=== PATIENT | female | born 1955 | race Caucasian/White ===

== ENCOUNTER → 2019-09-29 10:31 | Outpatient (BNVA) | payer OTHER, SELFPAY | PROVIDERS: Family Provider Nurse Practitioner Family; PCP Nurse Practitioner Family; Visit Provider Registered Nurse | DX: Z00.00 Encounter for general adult medical examination without abnormal findings (principal); E03.9 Hypothyroidism, unspecified; E78.5 Hyperlipidemia, unspecified; Z12.31 Encounter for screening mammogram for malignant neoplasm of breast; Z53.20 Procedure and treatment not carried out because of patient's decision for unspecified reasons | CPT/HCPCS: 80053; 80061; 84443; 85025 ==

== ENCOUNTER → 2019-10-11 08:52 | Outpatient (BNVA) | payer OTHER, SELFPAY | PROVIDERS: Family Provider Nurse Practitioner Family; PCP Nurse Practitioner Family; Visit Provider Registered Nurse | DX: Z00.00 Encounter for general adult medical examination without abnormal findings (principal) | CPT/HCPCS: 80053; 80061; 84443 ==

== ENCOUNTER 2019-12-30 08:36 | Outpatient (CLI) | payer OTHER, SELFPAY ==
--- NOTE | 2019-12-30 08:55 | MM_ITS ---
WS: [id number] SCREENING DIGITAL MAMMOGRAM WITH CAD HISTORY: SCREEN COMPARISON: 11/05/2018 and 10/16/2016 Bilateral CC and MLO views submitted. Computer aided detection analyzed. Breast composition: The breasts are heterogeneously dense, which may obscure small masses. No suspici ous masses, microcalcifications or architectural distortion. MM/[place] [id number] IMPRESSION: BI-RADS: 1-Negative FOLLOW UP: 1 Year Follow-up
== END 2019-12-30 08:37 | disposition home or self-care (01) ==
LOC: RADSHAW 08:42
PROVIDERS: PCP Registered Nurse; Visit Provider Registered Nurse
DX: Z01.419 Encounter for gynecological examination (general) (routine) without abnormal findings (principal); Z12.31 Encounter for screening mammogram for malignant neoplasm of breast
CPT/HCPCS: 77067; 82270

== ENCOUNTER → 2020-10-02 08:58 | Outpatient (BNVA) | payer OTHER, SELFPAY | PROVIDERS: PCP Registered Nurse; Visit Provider Registered Nurse | DX: Z12.31 Encounter for screening mammogram for malignant neoplasm of breast (principal); E03.9 Hypothyroidism, unspecified; E78.5 Hyperlipidemia, unspecified; F41.9 Anxiety disorder, unspecified; Z78.9 Other specified health status | CPT/HCPCS: 80053; 80061; 84443; 85025 ==

== ENCOUNTER 2021-01-01 09:58 | Outpatient (CLI) | payer OTHER, SELFPAY ==
--- NOTE | 2021-01-01 10:15 | MM_ITS ---
WS: [id number] Exam: [place] [id number] Date/Time of Exam: 01/01/2021 10:43 AM Reason For Exam: SCREENING VIEWS: MLO and CC views both breasts. Comparison made with prior exam of 10/16/2016, 10/17/2017, 11/05/2018 and 12/30/2019. Findings: There was no sign of mass, architectural distortion or suspicious calcification in either breast. Sc attered fibroglandular densities MM/[place] [id number] Impression: BI-RADS: 2-Benign FOLLOW-UP: 1 Year Follow-up This mammogram was also analyzed by the Computer Aided Detection System R2 Imag e Net Software Engineer.
== END 2021-01-01 09:59 | disposition home or self-care (01) ==
LOC: RADSHAW 10:01
PROVIDERS: PCP Registered Nurse; Visit Provider Obstetrics & Gynecology
DX: Z12.31 Encounter for screening mammogram for malignant neoplasm of breast (principal)
CPT/HCPCS: 77067

== ENCOUNTER → 2021-01-19 10:36 | Outpatient (BNVA) | payer OTHER, SELFPAY | PROVIDERS: PCP Registered Nurse; Visit Provider Obstetrics & Gynecology | DX: Z01.419 Encounter for gynecological examination (general) (routine) without abnormal findings (principal) | CPT/HCPCS: 82270 ==

== ENCOUNTER → 2021-10-11 09:00 | Outpatient (BNVA) | payer OTHER, SELFPAY | PROVIDERS: PCP Registered Nurse; Visit Provider Registered Nurse | DX: I10 Essential (primary) hypertension (principal); E03.9 Hypothyroidism, unspecified; E78.5 Hyperlipidemia, unspecified | CPT/HCPCS: 80053; 80061; 84443; 85025 ==

== ENCOUNTER 2021-11-28 09:24 | Day surgery (SDC) | payer OTHER, SELFPAY ==
[2021-11-27 06:25] VITALS: BMI 26.2
[2021-11-28 09:56] VITALS: BP 157/82; PULSE 86; RESP 16; TEMP 37; O2SAT 99
--- NOTE | 2021-11-28 10:00 | ECG_ITS ---
[facility] Test Date: 2021-11-28 Pat Name: Leslie Balnco Department: Room: Gender: Female Rivet Catcher: : 1955 Requested By: Jorge Tam Order Number: [id number] Luisa Dutton MD: Andrew Jimenez M.D. Measurements Intervals [place] Rate: 67 P: 60 AK: 139 QRS: 0 QRSD: 94 T: 67 QT: 352 QTc: 372 Interpretive Statements SINUS RHYTHM WITH OCCASIONAL SUPRAVENTRICULAR PREMATURE COMPLEXES POSSIBLE LEFT ATRIAL ENLARGEMENT [-0.1mV P-WAVE IN V1/V2] INCOMPLETE RIGHT BUNDLE BRANCH BLOCK [90+ ms QRS DURATION, TERMINAL R IN V1/V2, 40+ ms S IN I/aVL/V4/V5/V6] No previous ECG available for comparison Electronically Signed On 11-28-2021 22:15:09 CDT by Andrew Jimenez M.D. [id number]
[2021-11-28] MEDS: sodium chloride 0.9% 1,000 ML 30 ML IV (10:08)
--- NOTE | 2021-11-28 10:22 | P.ANESASSM_ITS ---
Pre-Anesthetic Assessment Height/Weight: Height 1.7 m Weight 75.75 kg Temp Pulse Resp BP Pulse Ox 98.6 F 86 16 157/82 99 11/28/21 09:56 11/28/21 09:56 11/28/21 09:56 11/28/21 09:56 11/28/21 09:56 Preop Diagnosis: diagnostic Operation Date: 11/28/21 11:00 Proposed Procedures p Colonoscopy 48666/z12.11(Not Applicable) - Jorge Tam MD Familial anesthetic complications: None Was Beta Shukri taken within 24 hours: N/A Was Clonidine taken within 24 hours: N/A Last intake: Intake Last Liquid Date 11/27/21 Last Liquid Time 20:00 Last Solid Date 11/26/21 Last Solid Time 17:00 Social No alcohol and No tobacco Exam alert, oriented x 3, clear to auscultation bilaterally and regular rate & rhythm Airway Submandibular: within normal limits Cervical ROM: within normal limits Mallampati: Class II Dentition: chipped History/ROS No significant complaints Pulmonary None reported CV/HEM Murmur and Palpitations MVP PVC None reported Hepatic None reported GI Gastroesophageal Reflux Disease Metabolic [place] [facility] [place] None reported Neuropsych Anxiety Anesthetic Plan ASA status: 2 Anesthesia: Anesthesia Evaluation and General Other: I discussed with the patient risks, goals, and benefits of MAC and general anesthesia. We discussed spectrum of MAC anesthesia including conversion to general as well as possibility of recall of intraoperative stimuli including discomfort/pain. Patient agrees to proceed with MAC. Risk of > 500 ml blood loss (7ml/kg in children): No Medications/Allergies Home Medications Medication Instructions Recorded Confirmed Last Taken Type calcium polycarbophil 625 mg 625 mg PO DAILY tab 09/29/19 11/27/21 Unknown History tablet (Fiber Therapy (ca polycarbophil)) garlic 300 mg PO DAILY 09/29/19 11/27/21 Unknown History multivitamin 1 tab PO DAILY 12/20/19 11/27/21 Unknown History lorazepam 0.5 mg tablet 0.25 - 0.5 mg PO DAILY PRN 30 Days 10/02/20 11/27/21 Unknown Rx #8 tab aspirin-caffeine 845 mg-65 mg oral 0.5 ea PO PRN ea 12/21/20 11/20/21 11/20/21 History powder packet (BC Pain Relief) levothyroxine 75 mcg capsule 75 mcg PO DAILY #90 cap 09/05/21 11/27/21 Unknown Rx aspirin 81 mg tablet,delayed 81 mg PO DAILY 11/20/21 11/20/21 11/20/21 History release (Adult Aspirin Regimen) lactulose 10 gram/15 mL (15 mL) 15 ml PO BID 7 Days #210 ml 11/20/21 11/27/21 Unknown Rx oral solution valerian root 500 mg capsule 250 mg PO PRN PRN 11/27/21 11/27/21 11/20/21 History Allergies Allergy/AdvReac Type Severity Reaction Status Date / Time Sulfa (Sulfonamide Allergy Mild rash Verified 11/27/21 06:19 Antibiotics) Tetanus Vaccines and Toxoid Allergy Mild fever Verified 11/27/21 06:19 bee stings Allergy swelling, Uncoded 11/27/21 06:19 fever seafood Allergy scallops, Uncoded 11/27/21 06:19 excessive diarrhea PFSH Anesthesia Medical History Anxiety Hyperlipidemia Hypothyroidism (acquired) Mitral valve prolapse Surgical History (Updated 11/28/21 @ 11:01 by Jorge Tam MD) History of dilation and curettage (06/07/95) Incomplete . Performed by Dr. Sams at [facility] in [place], [place]. History of dilation and curettage (06/22/97) Missed . Performed by Dr. Sams at [facility] in [place], [place]. Status post colonoscopy (11/28/21) Family History Grandfather Heart disease maternal Father Hypertension Hypothyroid Stroke Sister Hypothyroid Unknown Hypercholesteremia family members in general Grandmother Stroke Social History Smoking and tobacco status: never smoked Alcohol intake: current Alcohol intake frequency: few times a month Alcohol type: wine Adopted: No Caregiver/support person: No Lives independently: No Household members: spouse Marital status: service: No Current occupational status: retired Sexually active: Yes Current gender identity: Female Data Anesthesia Cardiac Studies: No Data to Display
--- NOTE | 2021-11-28 10:30 | P.HP_ITS ---
Same Day Surgery H&P Indication for Procedure/HPI DATE OF PROCEDURE: November 28, 2021 CHIEF COMPLAINT/INDICATIONFOR SURGICAL PROCEDURE: Screening colonoscopy PREOP DIAGNOSIS: diagnostic PLANNED PROCEDURE: Operation Date: 11/28/21 11:00 Proposed Procedures p Colonoscopy 05282/z12.11(Not Applicable) - Jorge Tam MD Medications/Allergies* Home Medications Medication Instructions Recorded Confirmed Type calcium polycarbophil 625 mg 625 mg PO DAILY tab 09/29/19 11/27/21 History tablet (Fiber Therapy (ca polycarbophil)) garlic 300 mg PO DAILY 09/29/19 11/27/21 History multivitamin 1 tab PO DAILY 12/20/19 11/27/21 History aspirin-caffeine 845 mg-65 mg oral 0.5 ea PO PRN ea 12/21/20 11/20/21 History powder packet (BC Pain Relief) aspirin 81 mg tablet,delayed 81 mg PO DAILY 11/20/21 11/20/21 History release (Adult Aspirin Regimen) valerian root 500 mg capsule 250 mg PO PRN PRN 11/27/21 11/27/21 History Allergies/Adverse Reactions Allergy/AdvReac Type Severity Reaction Status Date / Time Sulfa (Sulfonamide Allergy Mild rash Verified 11/27/21 06:19 Antibiotics) Tetanus Vaccines and Toxoid Allergy Mild fever Verified 11/27/21 06:19 bee stings Allergy swelling, Uncoded 11/27/21 06:19 fever seafood Allergy scallops, Uncoded 11/27/21 06:19 excessive diarrhea Current Medications: Generic Name Dose Route Start Last Admin Trade Name Freq PRN Reason Stop Dose Admin Sodium Chloride 1,000 mls @ 30 mls/hr 11/28/21 10:00 11/28/21 10:08 Sodium Chloride 0.9% IV 11/29/21 09:59 30 mls/hr .Q24H RON Administration Pertinent History/Comorbid Conditions* Medical History (Updated 11/05/21 @ 19:11 by FRANCO Prado) Anxiety Hyperlipidemia Hypothyroidism (acquired) Mitral valve prolapse Surgical History (Updated 12/23/19 @ 16:24 by Da Acharya MD) History of dilation and curettage (06/07/95) Incomplete . Performed by Dr. Sams at [facility] in [place], [place]. History of dilation and curettage (06/22/97) Missed . Performed by Dr. Sams at [facility] in [place], [place]. Family History (Updated 12/20/19 @ 09:35 by Lilian Franco LPN) Heart disease Grandfather maternal Hypercholesteremia Unknown family members in general Hypothyroid Father Sister Hypertension Father Stroke Father Grandmother Social History Smoking and tobacco status: never smoked Alcohol intake: current Alcohol intake frequency: few times a month Alcohol type: wine Adopted: No Caregiver/support person: No Lives independently: No Household members: spouse Marital status: service: No Current occupational status: retired Sexually active: Yes Current gender identity: Female Pertinent Exam Findings alert, oriented x 3 and regular rate & rhythm Recommendations Surgery/Procedure today Coding Level of Care Code Acute Vmware Administrator for Erin Marcus
[2021-11-28 11:03] VITALS: BP 149/76; PULSE 75; RESP 18; TEMP 36.1; O2SAT 96
[2021-11-28 11:20] VITALS: BP 174/87; PULSE 59; RESP 18; O2SAT 99
--- NOTE | 2021-11-28 17:46 | ANE.PACU2 ---
Inpatient post-anesthesia follow up: Airway intact: Yes Vital signs: Temperature 97 F Pulse Rate 59 Respiratory Rate 18 Blood Pressure 174/87 Pulse Oximetry 99 Oxygen Delivery Me thod Room Air Oxygen Flow Rate Fraction of Inspir ed Oxygen Hydration adequate: Yes Nausea and vomiting: No Pain level: 1 Mental status: Baseline
== END 2021-11-28 11:38 | disposition home or self-care (01) ==
PROVIDERS: PCP Registered Nurse; Visit Provider Surgery
PROC: 0DJD8ZZ Inspection of Lower Intestinal Tract, Via Natural or Artificial Opening Endoscopic (ICD-10-PCS; CPT 45378; principal; 2021-11-28 11:00)
DX: Z12.11 Encounter for screening for malignant neoplasm of colon (principal); K57.30 Diverticulosis of large intestine without perforation or abscess without bleeding; K64.8 Other hemorrhoids; Z79.82 Long term (current) use of aspirin; F41.9 Anxiety disorder, unspecified; E78.5 Hyperlipidemia, unspecified; E03.9 Hypothyroidism, unspecified; Z82.49 Family history of ischemic heart disease and other diseases of the circulatory system
CPT/HCPCS: 45378; 93005; J2704; J7030

== ENCOUNTER 2022-01-03 08:35 | Outpatient (CLI) | payer OTHER, SELFPAY ==
--- NOTE | 2022-01-03 08:43 | MM_ITS ---
WS: [id number] VIEWS: MLO and CC views both breasts. 3D digital tomosynthesis is also included in this exam. Comparison made with prior exam of 10/13/2015, 10/16/2016, 11/05/2018, 12/30/2019, 01/01/2021.. Findings: There was no sign of mass, architectural distortion or suspicious calcification in either breast. Sca ttered fibroglandular densities MM/[place] [id number] Impression: BI-RADS: 2-Benign FOLLOW-UP: 1 Year Follow-up This mammogram was also analyzed by the Computer Aided Detection System R2 Imag e Cut Off Saw Set Up Operator.
== END 2022-01-03 08:36 | disposition home or self-care (01) ==
PROVIDERS: PCP Registered Nurse; Visit Provider Obstetrics & Gynecology
DX: Z12.31 Encounter for screening mammogram for malignant neoplasm of breast (principal)
CPT/HCPCS: 77063; 77067

== ENCOUNTER → 2022-10-29 10:56 | Outpatient (BNVA) | payer OTHER, SELFPAY | PROVIDERS: PCP Registered Nurse; Visit Provider Registered Nurse | DX: E03.9 Hypothyroidism, unspecified (principal) | CPT/HCPCS: 80053; 80061; 84443; 85025 ==

== ENCOUNTER 2023-01-09 09:18 | Outpatient (CLI) | payer OTHER, SELFPAY ==
--- NOTE | 2023-01-09 09:42 | MM_ITS ---
WS: [id number] SCREENING DIGITAL BREAST TOMOSYNTHESIS MAMMOGRAM WITH CAD HISTORY: SCREENING COMPARISON: 01/03/2022, 01/01/2021 and 12/30/2019 Bilateral CC and MLO with tomosynthesis and synthetic mammography submitted. Computer aided detection analyzed. Breast composition: There are scattered areas of fibroglandular density. Well-circumscribed 8 x 7 mm nodule is present in the mid posterior RIGHT breast central to the nipple. No additional abnormalitie s. MM/[place] [id number] IMPRESSION: BI-RADS: 0-Incomplete: Need additional imaging evaluation FOLLOW UP: Need Additional Imaging Recommendation: RIGHT breast ultrasound, directly posterior to the nipple, mid to posterior depth. Evaluate for an 8 x 7 mm nodule.
== END 2023-01-09 09:19 | disposition home or self-care (01) ==
PROVIDERS: PCP Registered Nurse; Referring Provider Obstetrics & Gynecology; Visit Provider Registered Nurse
DX: Z12.31 Encounter for screening mammogram for malignant neoplasm of breast (principal)
CPT/HCPCS: 77063; 77067

== ENCOUNTER 2023-02-03 11:20 | Outpatient (CLI) | payer OTHER, SELFPAY ==
--- NOTE | 2023-02-03 11:30 | US_ITS ---
WS: [id number] ULTRASOUND RIGHT BREAST HISTORY: RIGHT breast nodule. COMPARISON: 01/09/2023 TECHNIQUE: 2-D and Doppler. There is a small cyst posterior to the nipple measuring 2 x 2 x 5 mm which does not correspond to th e mammographic abnormality. No mass is identified in the posterior RIGHT breast against the chest wal l to correspond to the mammographic abnormality. US/US breast RT limited* [id number] IMPRESSION: BI-RADS: 3-Probably Benign FOLLOW-UP: 6 Month Follow-up Recommend diagnostic mammogram RIGHT breast in 6 months and possible ultrasound follow-up if the mass is reidentified.
== END 2023-02-03 11:21 | disposition home or self-care (01) ==
LOC: RAD 11:24
PROVIDERS: PCP Registered Nurse; Visit Provider Registered Nurse
DX: R92.8 Other abnormal and inconclusive findings on diagnostic imaging of breast (principal); N63.10 Unspecified lump in the right breast, unspecified quadrant
CPT/HCPCS: 76642

== ENCOUNTER 2023-08-18 08:32 | Outpatient (CLI) | payer OTHER, MEDICARE, SELFPAY ==
--- NOTE | 2023-08-18 08:43 | MM_ITS ---
WS: [id number] DIAGNOSTIC RIGHT DIGITAL TOMOSYNTHESIS MAMMOGRAPHY WITH CAD. RIGHT breast ultrasound, limited HISTORY: 6-month follow-up. COMPARISON: 01/09/2023, 01/03/2022, 01/01/2021, RIGHT breast ultrasound 02/03/2023 Technique: CC, MLO and ML views. Spot compression RIGHT CC and MLO. Breast composition: The breasts are heterogeneously dense, which may obscure small masses. Reidentifi ed is a well-circumscribed slightly lobulated mass central and posterior to the nipple measuring 9 x 8 mm. Mass is slightly increased in size since the prior study. RIGHT breast ultrasound, limited. Identified posterior against the chest wall on today's examination is a cyst measuring 9 x 8 x 6 mm w hich does correspond in size and location to the mammographic abnormality. I do believe this is a cys t although there is limited through transmission due to its posterior deep position. IMPRESSION: MM/[place] [id number] BI-RADS: 3-Probably Benign FOLLOW UP: 6 Month Follow-up 1. Patient to return in 6 months for bilateral annual mammogram, January 2024. 2. Recommend additional ultrasound evaluation of the RIGHT breast to reevaluate the complex cyst. This mass has slightly increased in size since the most rece nt study but the ultrasound today does demonstrate what is probably a minimally complex cyst.
--- NOTE | 2023-08-18 09:30 | US_ITS ---
WS: [id number] DIAGNOSTIC RIGHT DIGITAL TOMOSYNTHESIS MAMMOGRAPHY WITH CAD. RIGHT breast ultrasound, limited HISTORY: 6-month follow-up. COMPARISON: 01/09/2023, 01/03/2022, 01/01/2021, RIGHT breast ultrasound 02/03/2023 Technique: CC, MLO and ML views. Spot compression RIGHT CC and MLO. Breast composition: The breasts are heterogeneously dense, which may obscure small masses. Reidentifi ed is a well-circumscribed slightly lobulated mass central and posterior to the nipple measuring 9 x 8 mm. Mass is slightly increased in size since the prior study. RIGHT breast ultrasound, limited. Identified posterior against the chest wall on today's examination is a cyst measuring 9 x 8 x 6 mm w hich does correspond in size and location to the mammographic abnormality. I do believe this is a cys t although there is limited through transmission due to its posterior deep position. IMPRESSION: US/US breast RT limited* [id number] BI-RADS: 3-Probably Benign FOLLOW UP: 6 Month Follow-up 1. Patient to return in 6 months for bilateral annual mammogram, January 2024. 2. Recommend additional ultrasound evaluation of the RIGHT breast to reevaluate the complex cyst. This mass has slightly increased in size since the most rece nt study but the ultrasound today does demonstrate what is probably a minimally complex cyst.
== END 2023-08-18 08:33 | disposition home or self-care (01) ==
LOC: RAD 08:34
PROVIDERS: PCP Registered Nurse; Visit Provider Registered Nurse
DX: R92.8 Other abnormal and inconclusive findings on diagnostic imaging of breast (principal)
CPT/HCPCS: 76642; 77061; G0279

== ENCOUNTER → 2023-11-11 10:03 | Outpatient (BNVA) | payer OTHER, MEDICARE, SELFPAY | PROVIDERS: PCP Registered Nurse; Visit Provider Registered Nurse | DX: Z13.6 Encounter for screening for cardiovascular disorders (principal); E03.9 Hypothyroidism, unspecified | CPT/HCPCS: 80053; 80061; 84443; 85025 ==

== ENCOUNTER → 2024-01-27 13:01 | Outpatient (CLI) | payer OTHER, MEDICARE, SELFPAY ==
--- NOTE | 2024-01-27 13:30 | MM_ITS ---
WS: [email or web address] DIAGNOSTIC BILATERAL DIGITAL BREAST TOMOSYNTHESIS MAMMOGRAPHY WITH CAD RIGHT breast ultrasound, limited HISTORY: R92.8 - Other abnormal and inconclusive findings on diagn... COMPARISON: 01/09/2023, 08/18/2023, 12/30/2019 TECHNIQUE: Bilateral craniocaudad, mediolateral oblique, and mediolateral views are submitted with to mosynthesis and SM. Spot compression RIGHT MLO and CC. Computer aided detection utilized. Breast composition: The breasts are heterogeneously dense, which may obscure small masses. Slight inc rease in size of the mass in the central RIGHT breast which is probably just medial to the nipple dean e. Mass measures 10 x 7 mm. LEFT breast is negative. RIGHT breast ultrasound, limited. There is a hypoechoic mass at 3:00 behind the nipple measuring 0.9 x 0.8 x 0.7 cm. No increased vascu larity. Margins of the mass are to slightly lobulated which is new. There is no through transmission. MM/[place] [id number] IMPRESSION: BI-RADS: 4-Suspicious Finding-Biopsy Should Be Considered FOLLOW UP: Biopsy Recommended 1. Ultrasound-guided biopsy recommended of the hypoechoic mass in the RIGHT br east at 3:00. Cannot confirm this is a cyst and has slowly increased in size si nce 01/09/2023 and is new since 01/03/2022. Margins are very just slightly lobulat ed. Recommend biopsy to confirm pathology.
--- NOTE | 2024-01-27 14:00 | US_ITS ---
WS: [email or web address] DIAGNOSTIC BILATERAL DIGITAL BREAST TOMOSYNTHESIS MAMMOGRAPHY WITH CAD RIGHT breast ultrasound, limited HISTORY: R92.8 - Other abnormal and inconclusive findings on diagn... COMPARISON: 01/09/2023, 08/18/2023, 12/30/2019 TECHNIQUE: Bilateral craniocaudad, mediolateral oblique, and mediolateral views are submitted with to mosynthesis and SM. Spot compression RIGHT MLO and CC. Computer aided detection utilized. Breast composition: The breasts are heterogeneously dense, which may obscure small masses. Slight inc rease in size of the mass in the central RIGHT breast which is probably just medial to the nipple dean e. Mass measures 10 x 7 mm. LEFT breast is negative. RIGHT breast ultrasound, limited. There is a hypoechoic mass at 3:00 behind the nipple measuring 0.9 x 0.8 x 0.7 cm. No increased vascu larity. Margins of the mass are to slightly lobulated which is new. There is no through transmission. US/US breast RT limited* [id number] IMPRESSION: BI-RADS: 4-Suspicious Finding-Biopsy Should Be Considered FOLLOW UP: Biopsy Recommended 1. Ultrasound-guided biopsy recommended of the hypoechoic mass in the RIGHT br east at 3:00. Cannot confirm this is a cyst and has slowly increased in size si nce 01/09/2023 and is new since 01/03/2022. Margins are very just slightly lobulat ed. Recommend biopsy to confirm pathology.
== END | disposition home or self-care (01) ==
LOC: RAD 13:01
PROVIDERS: PCP Registered Nurse; Visit Provider Registered Nurse
DX: R92.8 Other abnormal and inconclusive findings on diagnostic imaging of breast (principal); R92.333 Mammographic heterogeneous density, bilateral breasts; N63.15 Unspecified lump in the right breast, overlapping quadrants
CPT/HCPCS: 76642; 77062; G0279

== ENCOUNTER 2024-02-25 14:00 | Outpatient (CLI) | payer OTHER, MEDICARE, SELFPAY ==
--- NOTE | 2024-02-25 14:00 | US_ITS ---
WS: [email or web address] ULTRASOUND-GUIDED RIGHT BREAST BIOPSY HISTORY: N63.10 - Unspecified lump in the right breast, unspecifie... COMPARISON: 01/27/2024 and 08/18/2023 Procedure, risks and complications are explained to the patient. Medications are reviewed. Consent is obtained. The mass in the RIGHT breast is localized with ultrasound. Mass localizes to 3:00 in the retroareolar distribution. Mass is very posterior against the chest wall. Skin is cleansed with ChloraPrep and an esthetized with 1% buffered lidocaine. Small dermatome is made. Under sterile conditions mass is biop sied with a 14-gauge Achieve needle. Only 2 core biopsies are performed. Material placed in formalin and sent to pathology for review. No complications encountered. Breast tissue marker (Bard ultrasound enhanced ribbon): Single. Patient left the radiology suite with no complications. Patient is instructed to [place] [facility] [place] [facility] with any concerns. US/[place] [id number] IMPRESSION: 1. Uncomplicated core needle biopsy hypoechoic mass at 3:00 retroareolar. Afte r the first 2 biopsies this mass nearly completely collapsed suggesting this is probably a complex cyst. A localization clip was placed at the site of the mas s. PATHOLOGY: Benign breast parenchyma with focal bland cyst wall present. No atyp ia or malignancy. RECOMMENDATION: Diagnostic RIGHT mammogram and ultrasound follow-up in 6 months . Pathology and imaging findings are concordant.
== END 2024-02-25 14:01 | disposition home or self-care (01) ==
PROVIDERS: PCP Registered Nurse; Visit Provider Registered Nurse
DX: N63.41 Unspecified lump in right breast, subareolar (principal)
CPT/HCPCS: 19083; 88305

== ENCOUNTER 2024-03-17 15:05 | Outpatient (CLI) | payer OTHER, MEDICARE, SELFPAY | END 2024-03-17 15:06 | disposition home or self-care (01) | LOC: SLEEP 15:09 | PROVIDERS: PCP Registered Nurse; Visit Provider Registered Nurse | DX: G47.33 Obstructive sleep apnea (adult) (pediatric) (principal); I10 Essential (primary) hypertension | CPT/HCPCS: G0399 ==

== ENCOUNTER 2024-09-14 08:59 | Outpatient (CLI) | payer MEDICARE, OTHER, SELFPAY ==
--- NOTE | 2024-09-14 09:12 | US_ITS ---
WS: [email or web address] ADDITIONAL VIEWS RIGHT MAMMOGRAM WITH DIGITAL BREAST TOMOSYNTHESIS. RIGHT BREAST ULTRASOUND HISTORY: N63.10 - Unspecified lump in the right breast, 6-month follow-up RIGHT breast biopsy. Benign biopsy. COMPARISON: 01/27/2024, 08/18/2023, 01/09/2023, breast biopsy 02/25/2024 RIGHT MAMMOGRAM: Spot compression views and true ML with digital breast tomosynthesis and SM. Breast composition: The breasts are heterogeneously dense, which may obscure small masses. Previously described mass in the central RIGHT breast is no longer identified. There is a biopsy clip now present. The biopsy clip is just slightly anterior to the prior located mass. This clip may have migrated after the biopsy. There are no suspicious masses or calcifications. Ultrasound to follow at the biopsy site. RIGHT BREAST ULTRASOUND 2-D and color Doppler imaging submitted. Ultrasound directed to 3:00 demonstrates no underlying mass. The clip is not identified. No residual cyst. US/US breast RT limited* [id number] IMPRESSION: BI-RADS: 2 - Benign FOLLOW UP: 1 Year Follow-up Return to annual screening mammography.
--- NOTE | 2024-09-14 09:30 | MM_ITS ---
WS: [email or web address] ADDITIONAL VIEWS RIGHT MAMMOGRAM WITH DIGITAL BREAST TOMOSYNTHESIS. RIGHT BREAST ULTRASOUND HISTORY: N63.10 - Unspecified lump in the right breast, 6-month follow-up RIGHT breast biopsy. Benign biopsy. COMPARISON: 01/27/2024, 08/18/2023, 01/09/2023, breast biopsy 02/25/2024 RIGHT MAMMOGRAM: Spot compression views and true ML with digital breast tomosynthesis and SM. Breast composition: The breasts are heterogeneously dense, which may obscure small masses. Previously described mass in the central RIGHT breast is no longer identified. There is a biopsy clip now present. The biopsy clip is just slightly anterior to the prior located mass. This clip may have migrated after the biopsy. There are no suspicious masses or calcifications. Ultrasound to follow at the biopsy site. RIGHT BREAST ULTRASOUND 2-D and color Doppler imaging submitted. Ultrasound directed to 3:00 demonstrates no underlying mass. The clip is not identified. No residual cyst. MM/MM diag RT tomosynthesis [id number] IMPRESSION: BI-RADS: 2 - Benign FOLLOW UP: 1 Year Follow-up Return to annual screening mammography.
== END 2024-09-14 09:00 | disposition home or self-care (01) ==
LOC: RAD 09:03
PROVIDERS: PCP Registered Nurse; Visit Provider Registered Nurse
DX: N63.15 Unspecified lump in the right breast, overlapping quadrants (principal); R92.331 Mammographic heterogeneous density, right breast
CPT/HCPCS: 76642; 77061; G0279

== ENCOUNTER → 2024-11-17 10:46 | Outpatient (BNVA) | payer MEDICARE, OTHER, SELFPAY | PROVIDERS: PCP Registered Nurse; Visit Provider Registered Nurse | DX: Z13.6 Encounter for screening for cardiovascular disorders (principal); I10 Essential (primary) hypertension | CPT/HCPCS: 80053; 80061; 84443; 85025 ==

== ENCOUNTER 2025-01-28 09:33 | Outpatient (CLI) | payer MEDICARE, OTHER, SELFPAY ==
--- NOTE | 2025-01-28 10:00 | MM_ITS ---
WS: [email or web address] BILATERAL SCREENING DIGITAL TOMOSYNTHESIS MAMMOGRAM WITH CAD HISTORY: Z12.31 - Encounter for screening mammogram for malignant ... COMPARISON: 09/14/2024, 01/27/2024, 01/09/2023 Bilateral CC and MLO views with tomosynthesis and synthetic mammography submitted. Computer aided detection analyzed. Breast composition: There are scattered areas of fibroglandular density. No suspicious masses, microcalcifications or architectural distortion. Biopsy clip retroareolar RIGHT breast. MM/MM scr BI tomosynthesis [id number] IMPRESSION: BI-RADS: 2 - Benign. FOLLOW UP: 1 Year Follow-up
== END 2025-01-28 09:34 | disposition home or self-care (01) ==
LOC: RAD 09:35
PROVIDERS: PCP Registered Nurse; Visit Provider Registered Nurse
DX: Z12.31 Encounter for screening mammogram for malignant neoplasm of breast (principal)
CPT/HCPCS: 77063; 77067